=== PATIENT | female | born 1960 | race Hispanic/Latino ===

== ENCOUNTER 2019-12-25 13:35 | Outpatient (CLI) | payer BC ==
--- NOTE | 2019-12-30 14:56 | Magnetic Resonance Report ---
MRI BRAIN with and without IV contrast. INDICATION / CLINICAL INFORMATION: MBC, DIZZINESS, VISION CHANGES. TECHNIQUE: Multiplanar, multisequence MR images of the brain were obtained. COMPARISON: None available. FINDINGS: BRAIN / INTRACRANIAL CONTENTS: There are notable white matter changes within the ivone which are nonsp ecific though may reflect microvascular angiopathy at. A few scattered hyperintense foci are seen inv olving the cerebral white matter. The diffusion imaging reveals no evidence of acute infarction. 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 Otherwise, no intracranial enhancing lesions are identified. CRANIOCERVICAL JUNCTION: No significant abnormality. VASCULAR FLOW-VOIDS: The vascular structures grossly demonstrate appropriate signal voids. ORBITS: No significant abnormality of visualized orbits. SINUSES / MASTOIDS: There is mild mucosal thickening along the posterior left sphenoid and ethmoid si nuses. ADDITIONAL FINDINGS: None. IMPRESSION: 1. 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 There is no evidence of recent infarction. Signer Name: Cuong Schulte MD Signed: 12/25/2019 3:55 PM Workstation Name: [id number]
== END 2019-12-25 13:36 | disposition home or self-care (01) ==
LOC: SPVIMAG 13:35
PROVIDERS: ATTEND Internal Medicine Hematology & Oncology
DX: C50.812 Malignant neoplasm of overlapping sites of left female breast (principal); R90.82 White matter disease, unspecified; R42 Dizziness and giddiness; H53.9 Unspecified visual disturbance
CPT/HCPCS: 70553; A9577